=== PATIENT | male | born 1950 | race Caucasian/White ===

== ENCOUNTER 2021-02-16 16:16 | Emergency (ER) | payer MEDICARE, MEDICAID ==
[~2021-02-16] VITALS: Ht 175.3 cm; Wt 93.4 kg
[2021-02-16 16:20] VITALS: BP_SYST 153
--- NOTE | 2021-02-16 16:30 | NUR ---
Patient to ER bed 7 to gown for evaluation. Side rails up.
--- NOTE | 2021-02-16 16:35 | NUR ---
PT BIBA FROM [facility] C/O RED AREAS TO [facility], PAINFUL YESTERDAY. PT DENIES PAIN TODAY. PT IS AMBULATORY, AAOX4, V/S STABLE
--- NOTE | 2021-02-16 16:50 | NUR ---
ER DR. PLATA EXAMINING PT
--- NOTE | 2021-02-16 17:13 | NUR ---
PT AMBULATES TO BATHROOM WITH STEADY GAIT
[2021-02-16 17:22] LABS: BILIRUBIN,URINE NEGATIVE (NEGATIVE); CLARITY/URINE CLEAR (CLEAR); COLOR,URINE YELLOW (YELLOW); GLUCOSE,URINE NEGATIVE (NEGATIVE); KETONES,URINE NEGATIVE (NEGATIVE); LEUKOCYTE ESTERASE ,URINE NEGATIVE (NEGATIVE); NITRITE, URINE NEGATIVE (NEGATIVE); PROTEIN URINE NEGATIVE (NEGATIVE); UROBILINOGEN,URINE 0.2 (0.2-1.0)
[2021-02-16 17:45] LABS: BLOOD, URINE NEGATIVE (NEGATIVE)
--- NOTE | 2021-02-16 19:07 | NUR ---
REPORT GIVEN TO KEYLA BALDERRAMA FOR CONTINUING CARE
[2021-02-16] MEDS ORDERED: MUPI15CR12 TP (19:16)
--- NOTE | 2021-02-16 19:27 | NUR ---
Patient's family called -update patient status.
--- NOTE | 2021-02-16 20:22 | NUR ---
Provided food tray for patient.
[2021-02-16 21:36] VITALS: BP_SYST 153
--- NOTE | 2021-02-16 21:36 | NUR ---
Patient given written and verbal discharge instructions and verbalizes understanding. ER MD discussed with patient the results and treatment provided. Patient in stable condition. ID arm band removed. Rx of Mupicocin given. Patient educated on pain management and to follow up with PMD. Pain Scale 0/10. Opportunity for questions provided and answered. Medication side effect fact sheet provided.
[2021-02-20 01:06] LABS: CHLAMYDIA TRACHOMATIS NAA Negative (Negative); NEISSERIA GONORRHOEAE NAA Negative (Negative)
== END 2021-02-16 21:36 | disposition home or self-care (01) ==
LOC: SED 16:16
DX: N48.1 Balanitis (principal); N48.89 Other specified disorders of penis; I10 Essential (primary) hypertension; F17.210 Nicotine dependence, cigarettes, uncomplicated; Z79.899 Other long term (current) drug therapy
CPT/HCPCS: 81003; 87491; 87591; 99283